=== PATIENT | male | born 1945 | race Caucasian/White ===

== ENCOUNTER 2024-12-14 11:36 | Outpatient (CLI) | payer MEDICARE, OTHER ==
[~2024-12-14 11:36] MED LIST: barium sulfate 340gm for oral suspension 1 BOTTLE SUSP.RECON PO ONE
--- NOTE | 2024-12-14 15:12 | RADIOLOGY REPORT ---
Esophagram study: HISTORY: Dysphasia. With the patient in both upright and prone positions various consistency thin and thick barium liquid meals were administered under direct fluoroscopic evaluation. Fluoroscopy time was 1.1 minutes with dose 36.22 mGy. There is normal esophageal motility and distensibility. Minimal tertiary esophageal contractions are seen. The mid/distal esophagus is slightly patulous. There is no evidence of hiatal hernia or gastroesophageal reflux. The gastric and proximal small intestinal mucosal patterns appear unremarkable. IMPRESSION: Minimal tertiary esophageal contractions and slightly patulous mid/distal esophagus. Otherwise unremarkable examination
== END 2024-12-14 23:59 | disposition home or self-care (01) ==
LOC: RAD 11:36
PROVIDERS: ATTEND Nurse Practitioner
DX: R13.10 Dysphagia, unspecified (principal)
CPT/HCPCS: 74220